=== PATIENT | female | born 1965 | race Asian ===

== ENCOUNTER 2023-09-18 00:54 | Emergency (ER) | payer BC ==
[~2023-09-18] VITALS: Ht 160 cm; Wt 49.9 kg
[2023-09-18 01:45] VITALS: BP_SYST 120; PULSE 73; RESP 18; TEMP 97.8; O2SAT 97
[2023-09-18] MEDS: LIDOCAINE VISCOUS 2%, 15 ML UDC MM ONE (01:52)
[2023-09-18] MEDS: FAMOTIDINE 20 MG TABLET PO ONE (01:53)
[2023-09-18] MEDS ORDERED: ESOM40CA PO (02:42)
[2023-09-18 02:45] VITALS: O2SAT 100
[2023-09-18 03:16] VITALS: BP_SYST 120; PULSE 64; RESP 20; TEMP 98
== END 2023-09-18 02:45 | disposition home or self-care (01) ==
LOC: SED 00:54
DX: K21.9 Gastro-esophageal reflux disease without esophagitis (principal); R10.13 Epigastric pain; F41.9 Anxiety disorder, unspecified; Z79.899 Other long term (current) drug therapy
CPT/HCPCS: 93005; 99283; J2001